=== PATIENT | male | born 1960 | race Caucasian/White ===

== ENCOUNTER 2022-08-21 17:34 | Observation (INO) | payer OTHER, SELFPAY ==
[2022-08-21 17:36] VITALS: BP 151/101; PULSE 105; RESP 16; TEMP 35.9; O2SAT 99; BMI 29.0
--- NOTE | 2022-08-21 18:26 | CT_ITS ---
EXAM: CT ABDOMEN AND PELVIS WITH INTRAVENOUS CONTRAST CLINICAL INDICATION: LLQ / flank pain TECHNIQUE: Helically acquired images were obtained of the abdomen and pelvis with intravenous contrast. This CT exam was performed using one or more of the following dose reduction techniques: automated exposure control, adjustment of the mA and/or kV according to patient size, and/or use of iterative reconstruction technique. This report was created using [employer] report generation technology. CONTRAST: IV 100mL Isovue-370 COMPARISON: None. FINDINGS: LOWER THORAX: Unremarkable. Lung bases are clear. No cardiomegaly. No significant pericardial effusion. ABDOMEN: LIVER: Unremarkable. Homogeneous. No focal mass. GALLBLADDER AND BILE DUCTS: Unremarkable. No calcified gallstones. No gallbladder distention or wall edema. No intra- or extrahepatic biliary ductal dilation. PANCREAS: Unremarkable. No focal cystic or solid mass. SPLEEN: Unremarkable. Normal size without focal cystic or solid mass. ADRENALS: Unremarkable. No nodules. KIDNEYS AND URETERS: Unremarkable. Normal renal size and position. No hydronephrosis. STOMACH AND BOWEL: There is a diverticula with focal inflammation seen surrounding the distal descending colon compatible with diverticulitis. There is no abscess. There is a small bubble of gas present which may represent a diverticulum or microperforation. No stomach or bowel distention. PELVIS: APPENDIX: No evidence of acute appendicitis. BLADDER: Unremarkable. REPRODUCTIVE: There are seeds within the prostate gland. ABDOMEN and PELVIS: INTRAPERITONEAL SPACE: Unremarkable. No ascites or other fluid collection. No free air. BONES/JOINTS: Unremarkable. No suspicious lytic or blastic abnormality. SOFT TISSUES: Unremarkable. No discrete abdominal or pelvic wall hernia. VASCULATURE: Unremarkable. Abdominal aorta is non-dilated. LYMPH NODES: Unremarkable. No enlarged lymph nodes. CT/Abdomen/Pelvis W IV Cont ONLY IMPRESSION: Inflammation surrounding the distal descending colon which may represent focal diverticulitis. A small bubble of gas outside of the lumen which may represent a diverticulum or microperforation. There is no abscess. Electronically Signed: Kedar Morgan MD at 19:35 EST ,
--- NOTE | 2022-08-21 18:27 | ED.VIS.GI ---
HPI HPI - GI History of Present Illness Chief Complaint: Abd Pain Informant: patient Abdominal Pain/Flank Pain Onset: Days (2) Context: Gradual Onset Timing: Continuous Quality: Aching Location: LLQ Current Severity: Moderate Maximum Severity: Moderate Worsened by: Nothing Relieved by: Nothing Nausea/Vomiting/Emesis GI Symptom: Negative for Nausea or Vomiting Diarrhea/Melena/Hematochezia GI Symptom: Negative for Diarrhea, Melena or Hematochezia Associated Symptoms Associated Symptoms: Negative for Dysuria, Frequency, Hematuria or Urgency Narrative Narrative: New onset of pain in her left lower quadrant laterally that has become gradually worse. Initially said he thought he strained a muscle or something but it is getting worse and not better so he went to urgent care and was referred here. He has a history of diverticulitis, he had part of his colon removed 10 or 11 years ago with a colostomy and ended up having it reversed and has not had issues since. He denies any fevers, nausea, vomiting, diarrhea, bright red blood per rectum, melena, urinary symptoms, back pain. No history of kidney stones. [facility] Medical History (Updated 08/21/22 @ 20:[address] Earl Villarreal MD) Diverticulitis of colon (without mention of hemorrhage) History of DVT of lower extremity History of pleural effusion History of venous thrombosis and embolism Home Medications cyclobenzaprine 10 mg tablet 10 mg PO PRN PRN Pain 08/03/13 [History Last Taken Unknown] lidocaine 5 % topical patch 1 patch topical PRN 01/12/14 [History Last Taken Unknown] meloxicam 7.5 mg tablet 7.5 mg PO DAILY 01/12/14 [History Last Taken Unknown] oxycodone-acetaminophen 5 mg-325 mg tablet 1 - 2 tab PO Q4H PRN PRN Pain ##30 01/17/14 [Rx Last Taken Unknown] Allergy/AdvReac Type Severity Reaction Status Date / Time No Known Allergies Allergy Verified 08/21/22 17:36 Surgical History Colostomy status Social History Smoking Status: Former smoker ROS ROS ED Constitutional Constitutional ED: Denies chills or fever(s) Eyes Eyes: Denies change in vision or diplopia ENT ENT ED: Denies rhinorrhea or sore throat Cardiovascular Cardiovascular: Denies chest pain or palpitations Respiratory/Chest Respiratory/Chest: Denies cough or dyspnea Gastrointestinal Gastrointestinal: Reports abdominal pain; Denies diarrhea, nausea or vomiting Genitourinary Genitourinary ED: Denies dysuria or hematuria Musculoskeletal Musculoskeletal: Denies back pain or neck pain Integumentary Denies abscess or rash Neurologic Neurologic: Denies headache(s), paresthesias or weakness Psychiatric Psychiatric: Denies anxiety or suicidal thoughts EXAM Physical Exam Const Vital Signs: 08/21/22 17:36 Temperature 96.6 F L Temperature Source Temporal Pulse Rate 105 H Respiratory Rate 16 Blood Pressure 151/101 H Blood Pressure Mean 117 Pulse Ox 99 Oxygen Delivery Method Room Air Positive well nourished and well developed General Appearance ED: well developed and NAD HEENT Reports moist mucous membranes normocephalic and atraumatic Eyes PERRL and EOMs intact bilaterally Neck full ROM and supple Resp normal respiratory effort and clear to auscultation bilaterally Cardio regular rate, regular rhythm and no murmurs GI non-distended GI Narrative: Tender left lower quadrant but more laterally. No guarding or rebound tenderness. No other areas of tenderness. No pulsatile mass. Auscultation: normoactive bowel sounds Palpation: soft Back/Spine no CVA tenderness General Back: other FROM Extremity normal to inspection General Extremety ED: Negative for edema, pulses abnormal or tenderness General Extremity: Negative for edema or pulses abnormal Neuro oriented x3, CN's II-XII intact bilaterally and no sensory deficits noted Sensorium / Orientation: awake and alert Motor Exam: strength 5/5 throughout Skin no rashes or lesions noted and no wounds MDM MDM MDM Narrative Medical decision making narrative: Work-up consistent with diverticulitis, and there appears to be some evidence of a microperforation without an abscess. Started patient on IV Zosyn after giving him some pain medication, and he remained clinically and hemodynamically stable. Discussed with surgery Dr. Stephens. He agrees with admitting the patient, and will see him in the emergency department, meanwhile Zosyn is started. Lab Data Attestation: I reviewed the patient's lab results. Labs: Laboratory Results - last 24 hr 08/21/22 08/21/22 08/21/22 18:15 18:15 Unknown WBC 15.3 H RBC 4.75 Hgb 13.7 Hct 42.1 MCV 88.6 MCH 28.8 MCHC 32.5 RDW Std Deviation 40.6 RDW Coeff of Yaneth 12.4 Plt Count 307 MPV 9.6 Immature Gran % (Auto) 0.300 Neut % (Auto) 69.5 Lymph % (Auto) 18.2 L [place] % (Auto) 10.8 H Eos % (Auto) 0.5 Baso % (Auto) 0.7 Absolute Neuts (auto) 10.6 H Absolute Lymphs (auto) 2.79 Nucleated RBC % 0 Differential Comment SCANNED Diff Path Review May foll Sodium 135 L Potassium 4.0 Chloride 104 Carbon Dioxide 26.0 Anion Gap 5 BUN 16 Creatinine 0.85 Estim Creat Clear Calc 87.80 Est GFR (MDRD) Af Amer 117 Est GFR (MDRD) Non-Af 96 BUN/Creatinine Ratio 18.8 Glucose 106 Calcium 8.7 Urine Color Yellow Urine Clarity Sl. Cloudy Urine pH 6.0 Ur Specific [place] 1.015 Urine Protein 30 H Urine Glucose (UA) Normal Urine Ketones 50 H Urine Occult Blood Negative Urine Nitrite Negative Urine Bilirubin Negative Urine Urobilinogen Normal Ur Leukocyte Esterase 25 H Urine RBC 0 SEEN Urine WBC 0-5 SEEN Ur Squamous Epith Cells 0-5 SEEN Amorphous Sediment 1+ URATE Urine Bacteria 0 SEEN Urine Mucus 0 SEEN Radiography Diagnostic Testing: Clinical Impression(s) from Imaging Studies Abdomen/Pelvis CT 08/21/22 18:26 IMPRESSION: Inflammation surrounding the distal descending colon which may represent focal diverticulitis. A small bubble of gas outside of the lumen which may represent a diverticulum or microperforation. There is no abscess. Electronically Signed: Kedar Morgan MD at 19:35 EST , Discharge Plan Dx/Rx/DC Orders Clinical Impression: Diverticulitis of intestine with perforation without abscess Disposition Disposition: Acute Care Hospital [facility]
[2022-08-21] MEDS: Ketorolac 15 MG/ML Vial IV (18:31)
[2022-08-21] MEDS: 0.9% Normal Saline 1,000 ML 1000 ML IV (18:31)
[2022-08-21 18:44] LABS: Absolute Lymphocyte Count 2.79 X10^3/uL (0.83-4.51); Absolute Neutrophil Count 10.6 X10^3/uL (2.0-7.7); Basophil% 0.7 % (0-1); Eosinophil# 0.08 X10^3/uL; Eosinophils% 0.5 % (0-5); Hematocrit 42.1 % (40-54); Hemoglobin 13.7 g/dL (13.0-16.5); Lymphocyte # 2.79 X10^3/ul (0.83-4.51); Lymphocyte % 18.2 % (19-41); Mean Corp Hgb Conc 32.5 g/dL (32-36); Mean Corpuscular Hgb 28.8 pg (27.0-32.0); Mean Corpuscular Volume 88.6 fL (80-94); Mean Platelet Vol. 9.6 fl (6.2-12.0); Monocyte# 1.65 X10^3/uL; Monocyte% 10.8 % (0-10); NRBC Flagged by Analyzer 0 % (0-5); Neutrophil # 10.63 X10^3/uL (2.7-7.7); Neutrophil % 69.5 % (47-70); POSITIVE DIFFERENTIAL YES; Platelet Count 307 K/mm3 (150-450); RBC Distribution Width CV 12.4 % (11.6-14.6); RBC Distribution Width SD 40.6 fl (35.1-43.9); Red Blood Count 4.75 M/mm3 (4.6-6.2); White Blood Count 15.3 K/mm3 (4.4-11.0)
[2022-08-21 18:46] LABS: Differential Indicated SCAN CRITERIA MET
[2022-08-21 19:04] LABS: Anion Gap 5 (5-15); BUN 16 mg/dL (7-18); BUN/Creat Ratio 18.8 RATIO (10-20); Calcium,Total 8.7 mg/dL (8.5-10.1); Chloride 104 mmol/L (98-107); Creatinine, Serum 0.85 mg/dL (0.70-1.30); EST Glomerular Filtration Rate 96 mL/min (>60); Est Glom Filt Rate - Afr Amer 117 mL/min (>60); Glucose 106 mg/dL (74-106); Sodium Level 135 mmol/L (136-145)
[2022-08-21 19:15] LABS: Differential Comment SCANNED
[2022-08-21 19:41] LABS: Bacteria 0 SEEN /hpf (None Seen); Mucous, Urine 0 SEEN /hpf (<or=2+); Red Blood Cells-Urine 0 SEEN /hpf (0-5)
[2022-08-21 20:33] LABS: Color, Urine Yellow (Yellow); Glucose, Dipstick Normal (Normal); Ketone-Dipstick 50 mg/dl (Negative); Leukocyte Esterase-Dipstick 25 /ul (Negative); Nitrite-Dipstick Negative (Negative); Occult Blood-Urine Negative /ul (Negative); Protein-Dipstick 30 mg/dl (Negative); Specific Gravity, Urine 1.015 (1.002-1.030); Urine Bilirubin Dipstick Negative (Negative); Urine Clarity Sl. Cloudy (Clear); Urine Urobilinogen Normal (Normal)
[2022-08-21 20:41] LABS: Squamous Epithelial Cells - UA 0-5 SEEN /hpf (0-5); White Blood Cells 0-5 SEEN /hpf (0-5)
[2022-08-21 20:42] LABS: Amorphous Sediment 1+ URATE
[2022-08-21 20:51] VITALS: BP 143/90; PULSE 81; RESP 18; TEMP 36.6; O2SAT 95
--- NOTE | 2022-08-21 21:25 | PCM.HP.STD ---
HPI - General General Date of Admission: 08/21/22 Date of Service: 08/21/22 Chief Complaint: Progressive left lower quadrant pain HPI Narrative BREANNE NUGENT, is a 62 M who presents to 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 Patient states he initially thought he had strained a muscle, but when the discomfort persisted he began to google his symptoms. On finding pain in the left lower quadrant as possibly representing diverticulitis he decided to present for further evaluation to an urgent care clinic. From the urgent care clinic he was referred here to the emergency room upon hearing his history. ED work-up is notable for laboratories demonstrating leukocytosis of 15,000 with left shift and CT imaging showing single extraluminal locule of air concerning for microperforation. Patient has a history of complicated diverticulitis for which he was first evaluated in [place] but ultimately referred to the [facility] for management. He states that he had 2 percutaneous drains placed when he initially arrived to the [facility], but 1 day the drainage from one of the drains changed in character and shortly thereafter he found himself undergoing an emergent partial colectomy (Kidd's procedure). He states this was approximately 11 years ago in February. By Calvin the same year he had this colostomy reversed?also at the [facility]. Then about [address] Montaño performed a parastomal hernia repair and Mr. Nugent states he has done well since that time. He believes he has had a colonoscopy since the surgeries, but is unable to recall an exact date. He notes that a perioperative complication occurred with his colon surgeries in the form of a lower extremity DVT. He underwent treatment with Lovenox, but was ultimately taken off this thinner. [facility] Medical History (Updated 08/21/22 @ 20:[address] Earl Villarreal MD) Diverticulitis of colon (without mention of hemorrhage) History of DVT of lower extremity History of pleural effusion History of venous thrombosis and embolism Home Medications cyclobenzaprine 10 mg tablet 10 mg PO PRN PRN Pain 08/03/13 [History Last Taken Unknown] lidocaine 5 % topical patch 1 patch topical PRN 01/12/14 [History Last Taken Unknown] meloxicam 7.5 mg tablet 7.5 mg PO DAILY 05/15/14 [History Last Taken Unknown] oxycodone-acetaminophen 5 mg-325 mg tablet 1 - 2 tab PO Q4H PRN PRN Pain ##30 01/17/14 [Rx Last Taken Unknown] Allergy/AdvReac Type Severity Reaction Status Date / Time No Known Allergies Allergy Verified 08/21/22 17:36 Surgical History Colostomy status Social History Smoking Status: Former smoker ROS Constitutional Constitutional: Denies fever(s) Gastrointestinal Gastrointestinal: Reports abdominal pain; Denies diarrhea, nausea or vomiting Genitourinary Genitourinary: Denies dysuria Musculoskeletal Musculoskeletal: Reports back pain Vital Signs Vital Signs Vital Signs: 08/21/22 17:36 08/21/22 20:51 Temperature 96.6 F L 98 F Temperature Source Temporal Oral Pulse Rate 105 H 81 Respiratory Rate 16 18 Blood Pressure 151/101 H 143/90 H Blood Pressure Mean 117 107 Pulse Ox 99 95 Oxygen Delivery Method Room Air Room Air Weight Weight: 196 lb 3.382 oz Body Mass Index (BMI) 29.0 Physical Exam Const alert, oriented x3 and no apparent distress General Appearance: cooperative Resp normal respiratory effort GI GI Narrative: Well-healed midline laparotomy scar, well-healed left lower quadrant transverse incision. No signs of hernia. Abdomen is nondistended. Abdomen is soft and minimally tender to palpation in the left lower quadrant laterally Results Lab / Micro Data Result Diagrams: 08/21/22 18:15 08/21/22 18:15 Labs: Laboratory Results - last 24 hr 08/21/22 18:15: WBC 15.3 H, RBC 4.75, Hgb 13.7, Hct 42.1, MCV 88.6, MCH 28.8, MCHC 32.5, RDW Std Deviation 40.6, RDW Coeff of Yaneth 12.4, Plt Count 307, MPV 9.6, Immature Gran % (Auto) 0.300, Neut % (Auto) 69.5, Lymph % (Auto) 18.2 L, [place] % (Auto) 10.8 H, Eos % (Auto) 0.5, Baso % (Auto) 0.7, Absolute Neuts (auto) 10.6 H, Absolute Lymphs (auto) 2.79, Nucleated RBC % 0, Differential Comment SCANNED, Diff Path Review December08/21/22 18:15: Sodium 135 L, Potassium 4.0, Chloride 104, Carbon Dioxide 26.0, Anion Gap 5, BUN 16, Creatinine 0.85, Estim Creat Clear Calc 87.80, Est GFR (MDRD) Af Amer 117, Est GFR (MDRD) Non-Af 96, BUN/Creatinine Ratio 18.8, Glucose 106, Calcium 8.7 08/21/22 : Urine Color Yellow, Urine Clarity Sl. Cloudy, Urine pH 6.0, Ur Specific [place] 1.015, Urine Protein 30 H, Urine Glucose (UA) Normal, Urine Ketones 50 H, Urine Occult Blood Negative, Urine Nitrite Negative, Urine Bilirubin Negative, Urine Urobilinogen Normal, Ur Leukocyte Esterase 25 H, Urine RBC 0 SEEN, Urine WBC 0-5 SEEN, Ur Squamous Epith Cells 0-5 SEEN, Amorphous Sediment 1+ URATE, Urine Bacteria 0 SEEN, Urine Mucus 0 SEEN Radiology Impression Abdomen/Pelvis CT 08/21/22 18:26 IMPRESSION: Inflammation surrounding the distal descending colon which may represent focal diverticulitis. A small bubble of gas outside of the lumen which may represent a diverticulum or microperforation. There is no abscess. Electronically Signed: Kedar Morgan MD at 19:35 EST , Assessment & Plan Assessment/Plan (1) Diverticulitis of intestine with perforation without abscess: PLAN: Is a 62-year-old male who presents with signs and symptoms of perforated diverticulitis that could be classified as a Hinchey 1. He has a remote history of complicated diverticulitis treated with a Kidd's procedure and reversal of a Kidd's procedure approximately 11 years ago through the [facility]. He has done well since that time and believes this is his first episode of diverticulitis. ED work-up notable for leukocytosis and CT evidence showing single locule of air adjacent to the descending colon. On exam patient is focally tender at the level of this extraluminal air, but otherwise his exam is unremarkable. Given this reassuring exam, I recommended a initial conservative treatment course with n.p.o. and IV antibiotic therapy. Patient expresses understanding of this treatment plan and the willingness to proceed as described. Neuro: As needed Dilaudid Pulm/CV: No current issues FEN/GI: Daily electrolytes, n.p.o., trend abdominal exam : No current issues Heme/ID: Trend daily CBC, IV antibiotic therapy with continuous Zosyn Endo: No current issues Proph: Patient to be encouraged to mobilize as tolerated (history of provoked DVT). SCDs Dispo: Admit to inpatient Charges/Coding Visit Charges Inpatient E&M: 62438 Init Hosp L2
[2022-08-21 23:00] VITALS: BP 135/87; PULSE 77; RESP 18; TEMP 36.6; O2SAT 98
[2022-08-21 23:08] VITALS: BMI 29.0
[2022-08-21 23:29] VITALS: BP 135/87; PULSE 77; RESP 18; TEMP 36.6; O2SAT 98
[2022-08-21] MEDS: 0.9% Normal Saline 1,000 ML 125 ML IV (23:44)
[2022-08-22 04:24] VITALS: BP 139/76; PULSE 84; RESP 18; TEMP 36.6; O2SAT 95
[2022-08-22 04:28] VITALS: BP 139/76; PULSE 84; RESP 18; TEMP 36.6; O2SAT 95
[2022-08-22 05:26] LABS: Absolute Lymphocyte Count 1.89 X10^3/uL (0.83-4.51); Absolute Neutrophil Count 6.6 X10^3/uL (2.0-7.7); Eosinophil# 0.16 X10^3/uL; Eosinophils% 1.6 % (0-5); Hematocrit 39.4 % (40-54); Hemoglobin 13.4 g/dL (13.0-16.5); Lymphocyte # 1.89 X10^3/ul (0.83-4.51); Lymphocyte % 19.1 % (19-41); Mean Corpuscular Hgb 29.8 pg (27.0-32.0); Mean Corpuscular Volume 87.8 fL (80-94); Mean Platelet Vol. 9.6 fl (6.2-12.0); Monocyte# 1.08 X10^3/uL; Monocyte% 10.9 % (0-10); NRBC Flagged by Analyzer 0 % (0-5); Neutrophil # 6.62 X10^3/uL (2.7-7.7); Neutrophil % 67.1 % (47-70); Platelet Count 281 K/mm3 (150-450); RBC Distribution Width CV 12.4 % (11.6-14.6); RBC Distribution Width SD 39.9 fl (35.1-43.9); Red Blood Count 4.49 M/mm3 (4.6-6.2); White Blood Count 9.9 K/mm3 (4.4-11.0)
[2022-08-22 05:49] LABS: Anion Gap 5 (5-15); BUN 15 mg/dL (7-18); BUN/Creat Ratio 21.2 RATIO (10-20); Calcium,Total 8.2 mg/dL (8.5-10.1); Chloride 110 mmol/L (98-107); Creatinine, Serum 0.71 mg/dL (0.70-1.30); EST Glomerular Filtration Rate 119 mL/min (>60); Est Glom Filt Rate - Afr Amer 144 mL/min (>60); Estimated Creatinine Clearance 101.69 ml/min; Glucose 95 mg/dL (74-106); Magnesium 2.1 mg/dL (1.6-2.6); Phosphorus 2.5 mg/dL (2.5-4.9); Potassium 4.1 mmol/L (3.5-5.1); Sodium Level 138 mmol/L (136-145)
[2022-08-22] MEDS: 0.9% Normal Saline 1,000 ML 125 ML IV (07:49)
--- NOTE | 2022-08-22 09:02 | PCM.PN.SRG ---
Subjective Subjective Patient seen and examined during AM rounds. He is actively engaged in a phone conversation he refuses to disengage from. He hastily states that he must get out of here and reports that he is lost power to his home. He denies any abdominal pain. Objective Data Objective Data Vital Signs: Vital Signs Temp Pulse Resp BP Pulse Ox O2 Del Method 97.8 F 84 18 139/76 H 95 Room Air 08/22/22 04:28 08/22/22 04:28 08/22/22 04:28 08/22/22 04:28 08/22/22 04:28 08/22/22 04:28 Oxygen Delivery Method Room Air Weight: 196 lb 3.382 oz Body Mass Index (BMI) 29.0 Intake & Output: Intake and Output for Last 24 Hours 08/20/22 08/21/22 08/22/22 23:59 23:59 23:59 Intake Total 1050 / 1050 1010 / 1010 Output Total 500 / 500 Balance 1050 / 1050 510 / 510 Lab / Micro Data Result Diagrams: 08/22/22 04:08 08/22/22 04:08 Labs: Laboratory Results - last 24 hr 08/21/22 18:15: WBC 15.3 H, RBC 4.75, Hgb 13.7, Hct 42.1, MCV 88.6, MCH 28.8, MCHC 32.5, RDW Std Deviation 40.6, RDW Coeff of Yaneth 12.4, Plt Count 307, MPV 9.6, Immature Gran % (Auto) 0.300, Neut % (Auto) 69.5, Lymph % (Auto) 18.2 L, [place] % (Auto) 10.8 H, Eos % (Auto) 0.5, Baso % (Auto) 0.7, Absolute Neuts (auto) 10.6 H, Absolute Lymphs (auto) 2.79, Nucleated RBC % 0, Differential Comment SCANNED, Diff Path Review December08/21/22 18:15: Sodium 135 L, Potassium 4.0, Chloride 104, Carbon Dioxide 26.0, Anion Gap 5, BUN 16, Creatinine 0.85, Estim Creat Clear Calc 87.80, Est GFR (MDRD) Af Amer 117, Est GFR (MDRD) Non-Af 96, BUN/Creatinine Ratio 18.8, Glucose 106, Calcium 8.7 08/21/22 : Urine Color Yellow, Urine Clarity Sl. Cloudy, Urine pH 6.0, Ur Specific [place] 1.015, Urine Protein 30 H, Urine Glucose (UA) Normal, Urine Ketones 50 H, Urine Occult Blood Negative, Urine Nitrite Negative, Urine Bilirubin Negative, Urine Urobilinogen Normal, Ur Leukocyte Esterase 25 H, Urine RBC 0 SEEN, Urine WBC 0-5 SEEN, Ur Squamous Epith Cells 0-5 SEEN, Amorphous Sediment 1+ URATE, Urine Bacteria 0 SEEN, Urine Mucus 0 SEEN 08/22/22 04:08: WBC 9.9, RBC 4.49 L, Hgb 13.4, Hct 39.4 L, MCV 87.8, MCH 29.8, MCHC 34.0, RDW Std Deviation 39.9, RDW Coeff of Yaneth 12.4, Plt Count 281, MPV 9.6, Immature Gran % (Auto) 0.300, Neut % (Auto) 67.1, Lymph % (Auto) 19.1, [place] % (Auto) 10.9 H, Eos % (Auto) 1.6, Baso % (Auto) 1.0, Absolute Neuts (auto) 6.6, Absolute Lymphs (auto) 1.89, Nucleated RBC % 0 08/22/22 04:08: Sodium 138, Potassium 4.1, Chloride 110 H, Carbon Dioxide 23.0, Anion Gap 5, BUN 15, Creatinine 0.71, Estim Creat Clear Calc 101.69, Est GFR (MDRD) Af Amer 144, Est GFR (MDRD) Non-Af 119, BUN/Creatinine Ratio 21.2 H, Glucose 95, Calcium 8.2 L, Phosphorus 2.5, Magnesium 2.1 Radiography Diagnostic Testing: Radiology Impression Abdomen/Pelvis CT 08/21/22 18:26 IMPRESSION: Inflammation surrounding the distal descending colon which may represent focal diverticulitis. A small bubble of gas outside of the lumen which may represent a diverticulum or microperforation. There is no abscess. Electronically Signed: Kedar Morgan MD at 19:35 EST , Physical Exam Const oriented x3 Constitutional Narrative: Patient appears in distress from his news about his home, but denies any abdominal discomfort Resp normal respiratory effort GI GI Narrative: Nondistended, soft, nontender to palpation x4 quadrants (including left lower quadrant) Assessment & Plan Assessment/Plan (1) Diverticulitis of intestine with perforation without abscess: PLAN: Is a 62-year-old male who presents with signs and symptoms of perforated diverticulitis that could be classified as a Hinchey 1. He has a remote history of complicated diverticulitis treated with a Kidd's procedure and reversal of a Kidd's procedure approximately 11 years ago through the [facility]. Patient now hospital day 2 and appears to be further improved today with no complaints of abdominal pain. Diet advanced to soft, low residue diet and transition to oral antibiotics on the basis of this clinical improvement. Neuro: As needed Dilaudid Pulm/CV: No current issues FEN/GI: Daily electrolytes, advance to soft, low residue diet, trend abdominal exam : No current issues Heme/ID: Trend daily CBC, WBC normalized, antibiotic therapy transition to Augmentin Endo: No current issues Proph: Patient to be encouraged to mobilize as tolerated (history of provoked DVT). SCDs Dispo: Plan for discharge later today if patient tolerating diet Charges/Coding Visit Charges Inpatient E&M: 85204 Subs Hosp L2
[2022-08-22 10:30] VITALS: BP 147/94; PULSE 81; RESP 18; TEMP 35.8; O2SAT 97
[2022-08-22 10:44] VITALS: BP 147/94; PULSE 81; RESP 18; TEMP 35.8; O2SAT 97
[2022-08-22] MEDS: Amox/Clavulanate 875 MG Tablet PO (11:29)
--- NOTE | 2022-08-22 13:07 | DCINST_ITS ---
Discharge Instructions Diet Discharge Diet: Soft diet (Low residue/low fiber) Activity Discharge Activity: May Drive Dressing / Incision Call your doctor if you observe: Fever of 101 or Higher, Coldness, Increased Pain and Uncontrolled pain Follow Up Care Please Follow Up With: Pj Stephens MD When: 7 days postop Test Results: Test results from this visit will be discussed in further detail at your follow- up appointment, if applicable. Discharge Plan Admission Admit Date/Time: 08/21/22 21:20 Primary Reason for Your Visit: Perforated diverticulitis Attending Provider: Pj Stephens Primary Care Provider: Anthony Perez Instructions Patient Instructions: Low-Fiber Diet Discharge Orders/Prescriptions Prescriptions: New amoxicillin-pot clavulanate 875-125 mg Tablet 1 tab PO BID 7 Days Qty: 14 0RF Continued cyclobenzaprine 10 MG tablet 10 mg PO PRN PRN (Reason: Pain) Label Comments: muscle relaxant pravastatin 20 mg tablet 20 mg QHS Label Comments: TAKE 1 TABLET BY MOUTH ONCE DAILY AT BEDTIME Referrals / Follow Up: Anthony Perez MD [Primary Care Provider] - Disposition Disposition (needs filled in before D/C Order can be placed): Home, Self Care
--- NOTE | 2022-08-22 13:11 | DS.PCM_ITS ---
Providers Date of Admission: 08/21/22 Primary Care Physician: Dr. Anthony Perez MD Reason For Visit: PERFORATION DIVERTICULITIS Diagnosis Discharge Diagnosis (1) Diverticulitis of intestine with perforation without abscess: Status: Acute Code(s): K57.80 - Diverticulitis of intestine, part unspecified, with perforation and abscess without bleeding Plan: Is a 62-year-old male who presents with signs and symptoms of perforated diverticulitis that could be classified as a Hinchey 1. He has a remote history of complicated diverticulitis treated with a Kidd's procedure and reversal of a Kidd's procedure approximately 11 years ago through the [facility]. Patient now hospital day 2 and appears to be further improved today with no complaints of abdominal pain. Diet advanced to soft, low residue diet and transition to oral antibiotics on the basis of this clinical improvement. Neuro: As needed Dilaudid Pulm/CV: No current issues FEN/GI: Daily electrolytes, advance to soft, low residue diet, trend abdominal exam : No current issues Heme/ID: Trend daily CBC, WBC normalized, antibiotic therapy transition to Augmentin Endo: No current issues Proph: Patient to be encouraged to mobilize as tolerated (history of provoked DVT). SCDs Dispo: Plan for discharge later today if patient tolerating diet Medications at Discharge Home Medications cyclobenzaprine 10 mg tablet 10 mg PO PRN PRN Pain 08/03/13 pravastatin 20 mg tablet 20 mg QHS cholesterol 08/21/22 amoxicillin 875 mg-potassium clavulanate 125 mg tablet 1 tab PO BID 7 days #14 tabs 08/22/22 Hospital Course Operations None Procedures None Summary of Care Provided Minutes Spent on Discharge: 5 Hospital Course: Patient is 62-year-old male with a past history of complicated diverticulitis treated with Kidd's procedure status post reversal approximate 11 years ago. He was admitted on 08/21/2022 after he presented with signs and symptoms of recurrent complicated diverticulitis. CT imaging showed a single locule of air outside of his descending colon and he was focally tender at this point on exam. He also had a white blood cell count of 15,000. Given these findings, he is admitted for conservative management of this issue and held n.p.o. upon admission with initiation of IV antibiotics using Zosyn. By hospital day 2 his white blood cell count normalized and his abdominal pain resolved. Therefore he was advanced in his diet and transition to oral antibiotics. He tolerated both of these transitions without difficulty and was thus granted discharge the afternoon of hospital day 2 with expectations for posthospitalization follow-up as an outpatient. Physical Exam Const alert and oriented x3 GI GI Narrative: Nondistended, soft, nontender to palpation x4 quadrants Weight / BMI Weight Weight: 196 lb 3.382 oz Body Mass Index (BMI) 29.0 ABG / Lab / Microbiology Data Result Diagrams: 08/22/22 04:08 08/22/22 04:08 Laboratory: Laboratory Results - last 24 hr 08/21/22 18:15: WBC 15.3 H, RBC 4.75, Hgb 13.7, Hct 42.1, MCV 88.6, MCH 28.8, MCHC 32.5, RDW Std Deviation 40.6, RDW Coeff of Yaneth 12.4, Plt Count 307, MPV 9.6, Immature Gran % (Auto) 0.300, Neut % (Auto) 69.5, Lymph % (Auto) 18.2 L, [place] % (Auto) 10.8 H, Eos % (Auto) 0.5, Baso % (Auto) 0.7, Absolute Neuts (auto) 10.6 H, Absolute Lymphs (auto) 2.79, Nucleated RBC % 0, Differential Comment SCANNED, Diff Path Review December08/21/22 18:15: Sodium 135 L, Potassium 4.0, Chloride 104, Carbon Dioxide 26.0, Anion Gap 5, BUN 16, Creatinine 0.85, Estim Creat Clear Calc 87.80, Est GFR (MDRD) Af Amer 117, Est GFR (MDRD) Non-Af 96, BUN/Creatinine Ratio 18.8, Glucose 106, Calcium 8.7 08/21/22 : Urine Color Yellow, Urine Clarity Sl. Cloudy, Urine pH 6.0, Ur Specific [place] 1.015, Urine Protein 30 H, Urine Glucose (UA) Normal, Urine Ketones 50 H, Urine Occult Blood Negative, Urine Nitrite Negative, Urine Bilirubin Negative, Urine Urobilinogen Normal, Ur Leukocyte Esterase 25 H, Urine RBC 0 SEEN, Urine WBC 0-5 SEEN, Ur Squamous Epith Cells 0-5 SEEN, Amorphous Sediment 1+ URATE, Urine Bacteria 0 SEEN, Urine Mucus 0 SEEN 08/22/22 04:08: WBC 9.9, RBC 4.49 L, Hgb 13.4, Hct 39.4 L, MCV 87.8, MCH 29.8, MCHC 34.0, RDW Std Deviation 39.9, RDW Coeff of Yaneth 12.4, Plt Count 281, MPV 9.6, Immature Gran % (Auto) 0.300, Neut % (Auto) 67.1, Lymph % (Auto) 19.1, [place] % (Auto) 10.9 H, Eos % (Auto) 1.6, Baso % (Auto) 1.0, Absolute Neuts (auto) 6.6, Absolute Lymphs (auto) 1.89, Nucleated RBC % 0 08/22/22 04:08: Sodium 138, Potassium 4.1, Chloride 110 H, Carbon Dioxide 23.0, Anion Gap 5, BUN 15, Creatinine 0.71, Estim Creat Clear Calc 101.69, Est GFR (MDRD) Af Amer 144, Est GFR (MDRD) Non-Af 119, BUN/Creatinine Ratio 21.2 H, Glucose 95, Calcium 8.2 L, Phosphorus 2.5, Magnesium 2.1 Radiography Diagnostic Testing: Radiology Impression Abdomen/Pelvis CT 08/21/22 18:26 IMPRESSION: Inflammation surrounding the distal descending colon which may represent focal diverticulitis. A small bubble of gas outside of the lumen which may represent a diverticulum or microperforation. There is no abscess. Electronically Signed: Kedar Morgan MD at 19:35 EST Reading Location ID and State: [address] [place] [address] Tel , Service support , D/C Instructions Discharge Diet: Soft diet (Low residue/low fiber) Call your doctor if you observe: Fever of 101 or Higher, Coldness, Increased Pain and Uncontrolled pain Please Follow Up With: Pj Stephens MD When: 7 days postop Meaningful Use Info Meaningful Use Diagnoses (Choose all that apply): None applicable Discharge Plan Admission Admit Date/Time: 08/21/22 21:20 Primary Reason for Your Visit: Perforated diverticulitis Attending Provider: Pj Stephens Primary Care Provider: Anthony Perez Instructions Patient Instructions: Low-Fiber Diet Discharge Orders/Prescriptions Prescriptions: New amoxicillin-pot clavulanate 875-125 mg Tablet 1 tab PO BID 7 Days Qty: 14 0RF Continued cyclobenzaprine 10 MG tablet 10 mg PO PRN PRN (Reason: Pain) Label Comments: muscle relaxant pravastatin 20 mg tablet 20 mg QHS Label Comments: TAKE 1 TABLET BY MOUTH ONCE DAILY AT BEDTIME Referrals / Follow Up: Anthony Perez MD [Primary Care Provider] - Disposition Disposition (needs filled in before D/C Order can be placed): Home, Self Care Charges/Coding Visit Charges Inpatient E&M: 24371 Disch Hosp
--- NOTE | 2022-08-22 14:05 | CASEMGMT ---
BARRY DE LEON Assessment: Face to Face with pt for initial transition planning/care coordination assessment. RN MOISES introduced self and role at [facility], pt voices understanding and consents to assessment. Pt is A/O x4 and answers all questions appropriately at this time. Pt sitting up in bed in no distress. Care providers, pharmacy, and demographics verified/updated. Admitting Dx: perforation diverticulitis PCP:Chris Specialists:Kory, uro; Ivette, back and neck OR Preferred Pharmacy: [facility] Retail Insurance: [employer] Prescription Benefit: yes LNOK: Arianna Barrow, sig other; Ninoska Mcarthur, mother Living Arrangements: Pt lives with sig other in a single story home with no steps to enter. Pt reports he is I in ADL's and denies concerns at home. Transportation: Pt drives self and denies concerns with transportation. DME/HHC/SNF: Pt has a walk in shower, does not use AD. Pt sig other has DME available. Pt denies previous HHC or SNF stays. Pt states no concerns with going home at time of dc. Pt states no further concerns/needs. CM to follow. Advised pt to ask CM if any further question/concerns/needs arise, voices understanding. Pt Goal: Home Plan: Home
[2022-08-22 14:10] LABS: Pathologist Review Reviewed
--- NOTE | 2022-08-22 15:47 | NURSING ---
This RN taking over patients care at 15:00.
[2022-08-22 16:00] VITALS: BP 136/80; PULSE 80; RESP 18; TEMP 36.6; O2SAT 96
[2022-08-22 16:22] VITALS: BP 136/80; PULSE 80; RESP 18; TEMP 36.6; O2SAT 96
== END 2022-08-22 16:45 | disposition home or self-care (01) ==
LOC: ED 20:35 → MS3 08-22 08:21
PROVIDERS: Admitting Provider Surgery; Emergency Provider Emergency Medicine; PCP Internal Medicine; Visit Provider Surgery
DX: K57.80 Diverticulitis of intestine, part unspecified, with perforation and abscess without bleeding (principal); Z87.891 Personal history of nicotine dependence; Z86.718 Personal history of other venous thrombosis and embolism
CPT/HCPCS: 36415; 74177; 80048; 81001; 83735; 84100; 85025; 96361; 96365; 96366; 96375; 99221; 99284; J7030; J7040; Q9967; A4216; G0378

== ENCOUNTER 2024-01-22 07:36 | Emergency (ER) | payer MEDICARE, SELFPAY ==
[2024-01-22 07:38] VITALS: BP 171/110; PULSE 96; RESP 16; TEMP 36.3; O2SAT 99; BMI 29.6
[2024-01-22 07:39] VITALS: BP 165/106; PULSE 99; RESP 16; TEMP 36.3; O2SAT 97
--- NOTE | 2024-01-22 07:51 | CT_ITS ---
STUDY: CT ABDOMEN AND PELVIS WITH CONTRAST REASON FOR EXAM: Male, 63 years old. Diffuse abdominal pain RADIATION DOSAGE (If Supplied By Facility): CTDIvol = ( 18.91 ) mGy, DLP = ( 1368.80 ) mGycm TECHNIQUE: Transaxial images were obtained from the dome of the diaphragm to the symphysis pubis without oral contrast. IV 100mL Isovue-300 was administered. Sagittal and coronal images were reconstructed. Individualized dose optimization techniques were used for this CT. COMPARISON: 08/21/2022 FINDINGS: There are chronic interstitial fibrotic changes of the lung bases. The visualized portions of the heart are within normal limits. Normal liver. Normal gallbladder and extrahepatic biliary system. Normal spleen. Normal pancreas. Normal bilateral adrenal glands. Normal right kidney. Normal left kidney. Normal visualized stomach. Nondistended fluid-filled small bowel loops are noted consistent with ileus. Retained stool noted in the majority of the colon. There is abnormal thickening of the mid and distal descending colon with pericolonic inflammatory stranding. Findings are consistent with an acute diverticulitis. However, there is some evidence of caliber change within the distal descending colon and a underlying neoplastic process should be excluded with CT inflammatory changes have resolved. There is no perforation or abscess. The appendix is visualized and appears normal. Appendix seen on coronal reconstructed images 49 through 61 There is diffuse atherosclerotic calcification of the abdominal aorta, without a demonstrated aneurysm. Normal inferior vena cava. Normal retroperitoneum. Normal urinary bladder. Brachytherapy beads noted within the prostate. Normal abdominal wall. There are diffuse degenerative changes of the visualized lumbar spine, and pelvis. Surgical hardware in the lower lumbar spine free of complication CT/Abdomen/Pelvis W IV Cont ONLY IMPRESSION: Acute diverticulitis in the mid and distal descending colon with pericolonic inflammatory stranding. No perforation or abscess. There is however some caliber change within the descending colon and an underlying neoplastic process should be excluded once the acute inflammation has resolved. Small bowel ileus likely a result of the acute inflammatory changes in the colon described above No suspicious solid organ abnormality Normal appendix Electronically Signed: Levi Salazar MD at 10:01 EDT ,
--- NOTE | 2024-01-22 07:52 | EDS_ITS ---
HPI HPI - GI History of Present Illness Chief Complaint: Abd Pain Informant: patient Abdominal Pain/Flank Pain Onset: Yesterday Context: Gradual Onset Timing: Continuous Quality: Aching Location: LLQ Current Severity: Moderate Maximum Severity: Severe Worsened by: Nothing Relieved by: Nothing Nausea/Vomiting/Emesis GI Symptom: Negative for Nausea or Vomiting Diarrhea/Melena/Hematochezia GI Symptom: Negative for Diarrhea, Melena or Hematochezia Associated Symptoms Associated Symptoms: Negative for Dysuria, Frequency, Hematuria or Urgency Narrative Narrative: Onset of pain in left abdomen that has become gradually worse. He has a history of diverticulitis, he had part of his colon removed 10 or 11 years ago with a colostomy and ended up having it reversed and has not had issues since, but thinks this pain feels like diverticulitis. He denies any fevers, nausea, vomiting, diarrhea, bright red blood per rectum, melena, urinary symptoms, back pain. No history of kidney stones. [facility] Medical History (Updated 01/22/24 @ 10:[address] Earl Villarreal MD) History of pleural effusion Diverticulitis of colon (without mention of hemorrhage) History of DVT of lower extremity History of venous thrombosis and embolism Home Medications ?Medication ?Instructions ?Recorded ?Last Taken ?Type cyclobenzaprine 10 mg tablet 10 mg PO PRN PRN Pain 08/03/13 08/20/22 04:00 History pravastatin 20 mg tablet 20 mg QHS cholesterol 08/21/22 08/20/22 19:00 History amoxicillin 875 mg-potassium 875 mg PO Q12H #20 TABLETS 01/22/24 Unknown Rx clavulanate 125 mg tablet Allergy/AdvReac Type Severity Reaction Status Date / Time No Known Allergies Allergy Verified 01/22/24 07:37 Surgical History History of colostomy reversal Colostomy status Social History Smoking Status: Former smoker ROS ROS ED Constitutional Constitutional ED: Denies chills or fever(s) Eyes Eyes: Denies change in vision or diplopia ENT ENT ED: Denies rhinorrhea or sore throat Cardiovascular Cardiovascular: Denies chest pain or palpitations Respiratory/Chest Respiratory/Chest: Denies cough or dyspnea Gastrointestinal Gastrointestinal: Reports abdominal pain; Denies diarrhea, nausea or vomiting Genitourinary Genitourinary ED: Denies dysuria or hematuria Musculoskeletal Musculoskeletal: Denies back pain or neck pain Integumentary Denies abscess or rash Neurologic Neurologic: Denies headache(s), paresthesias or weakness Psychiatric Psychiatric: Denies anxiety or suicidal thoughts EXAM Physical Exam Const Vital Signs: 01/22/24 07:38 01/22/24 07:39 01/22/24 09:00 Temperature 97.3 F L 97.3 F L 98.9 F Temperature Source Temporal Temporal Temporal Pulse Rate 96 99 67 Respiratory Rate 16 16 18 Blood Pressure 171/110 H 165/106 H 146/95 H Blood Pressure Mean 130 125 112 Pulse Ox 99 97 97 Oxygen Delivery Method Room Air Room Air Room Air 01/22/24 09:37 01/22/24 10:00 Temperature 98.7 F Temperature Source Temporal Pulse Rate 78 88 Respiratory Rate 16 18 Blood Pressure 126/93 H 137/89 H Blood Pressure Mean 104 105 Pulse Ox 97 98 Oxygen Delivery Method Room Air Room Air Positive well nourished and well developed General Appearance ED: well developed and NAD HEENT Reports moist mucous membranes normocephalic and atraumatic Eyes PERRL and EOMs intact bilaterally Neck full ROM and supple Resp normal respiratory effort and clear to auscultation bilaterally Cardio regular rate, regular rhythm and no murmurs GI non-distended GI Narrative: Tender left lower quadrant but more laterally. No guarding or rebound tenderness. No other areas of tenderness. No pulsatile mass. Auscultation: normoactive bowel sounds Palpation: soft Back/Spine no CVA tenderness General Back: other FROM Extremity normal to inspection General Extremety ED: Negative for edema, pulses abnormal or tenderness General Extremity: Negative for edema or pulses abnormal Neuro oriented x3, CN's II-XII intact bilaterally, no sensory deficits noted and gait normal Sensorium / Orientation: awake and alert Motor Exam: strength 5/5 throughout Psych mental status grossly normal and thought process normal Skin no rashes or lesions noted and no wounds MDM MDM MDM Narrative Medical decision making narrative: Concern for diverticulitis, partial small bowel obstruction also in the differential, patient is not an extremis or having severe pain right now, his tenderness is similar to the context of his tenderness, so I am not thinking this is likely any type of acute mesenteric or bowel ischemia. While obtaining labs and a CT he was given IV fluids and Toradol for the pain. That did help his pain. I reviewed the labs, he does have a strong leukocytosis, and his urine is unremarkable, arguing against kidney stone. I reviewed the CT images as well as the report which I agree with, it is consistent with the absence of ureterolithiasis and presence of left-sided colonic diverticulitis without perforation or abscess, this is in the location where the patient is having pain. He is not septic, he is well-appearing, his vital signs are great, and I believe reasonable to treat as an outpatient. Discussed follow-up, outpatient treatment, offered prescription analgesics which she declines and states he should be okay without it. His blood pressure normalized on recheck without treating it, 137/89. Lab Data Attestation: I reviewed the patient's lab results. Labs: Laboratory Results - last 24 hr 01/22/24 07:55 WBC 19.3 H RBC 5.39 Hgb 15.6 Hct 46.5 MCV 86.3 MCH 28.9 MCHC 33.5 RDW Std Deviation 41.2 RDW Coeff of Yaneth 13.2 Plt Count 284 MPV 9.9 Immature Gran % (Auto) 0.400 Neut % (Auto) 79.6 H Lymph % (Auto) 11.2 L [place] % (Auto) 8.1 Eos % (Auto) 0.2 Baso % (Auto) 0.5 Absolute Neuts (auto) 15.4 H Absolute Lymphs (auto) 2.16 Nucleated RBC % 0 Differential Comment SCANNED Diff Path Review May foll Sodium 135 L Potassium 4.1 Chloride 106 Carbon Dioxide 23.0 Anion Gap 6 BUN 13 Creatinine 0.87 Estim Creat Clear Calc 97.32 Est GFR (MDRD) Af Amer 112 Est GFR (MDRD) Non-Af 93 BUN/Creatinine Ratio 14.9 Glucose 133 H Calcium 9.2 Urine Color Yellow Urine Clarity Clear Urine pH 7.0 Ur Specific [place] 1.010 Urine Protein 15 H Urine Glucose (UA) Normal Urine Ketones Negative Urine Occult Blood Negative Urine Nitrite Negative Urine Bilirubin Negative Urine Urobilinogen Normal Ur Leukocyte Esterase Negative Urine RBC 0 SEEN Urine WBC 0 SEEN Ur Squamous Epith Cells 0 SEEN Urine Bacteria 0 SEEN Urine Mucus 0 SEEN Radiography Diagnostic Testing: Clinical Impression(s) from Imaging Studies Abdomen/Pelvis CT 01/22/24 07:51 IMPRESSION: Acute diverticulitis in the mid and distal descending colon with pericolonic inflammatory stranding. No perforation or abscess. There is however some caliber change within the descending colon and an underlying neoplastic process should be excluded once the acute inflammation has resolved. Small bowel ileus likely a result of the acute inflammatory changes in the colon described above No suspicious solid organ abnormality Normal appendix Electronically Signed: Levi Salazar MD at 10:01 EDT Reading Location ID and State: [facility] / DC , Service support , Discharge Plan Triage Chief Complaint: Abd Pain ED Provider: Earl Villarreal Dx/Rx/DC Orders Clinical Impression: Diverticulitis of intestine with perforation without abscess Instructions: Diverticulitis Dc Prescriptions: New amoxicillin-pot clavulanate 875-125 mg tablet 875 mg PO Q12H Qty: 20 0RF No Action cyclobenzaprine 10 MG tablet 10 mg PO PRN PRN (Reason: Pain) Patient Comments: muscle relaxant pravastatin 20 mg tablet 20 mg QHS Patient Comments: TAKE 1 TABLET BY MOUTH ONCE DAILY AT BEDTIME Primary Care Provider: Anthony Perez Referrals: Anthony Perez MD [Primary Care Provider] - Print Language: Albanian
[2024-01-22] MEDS: 0.9% Normal Saline (500mL Bag) 500 ML 999 ML IV (08:02)
[2024-01-22] MEDS: Ketorolac 15 MG/ML Vial IV (08:02)
[2024-01-22 08:11] LABS: Bacteria 0 SEEN /hpf (None Seen); Mucous, Urine 0 SEEN /hpf (<or=2+); Red Blood Cells-Urine 0 SEEN /hpf (0-5); Squamous Epithelial Cells - UA 0 SEEN /hpf (0-5); White Blood Cells 0 SEEN /hpf (0-5)
[2024-01-22 08:13] LABS: Absolute Lymphocyte Count 2.16 X10^3/uL (0.83-4.51); Absolute Neutrophil Count 15.4 X10^3/uL (2.0-7.7); Basophil# 0.09 X10^3/uL; Basophil% 0.5 % (0-1); Eosinophil# 0.03 X10^3/uL; Eosinophils% 0.2 % (0-5); Hematocrit 46.5 % (40-54); Hemoglobin 15.6 g/dL (13.0-16.5); Lymphocyte # 2.16 X10^3/ul (0.83-4.51); Lymphocyte % 11.2 % (19-41); Mean Corp Hgb Conc 33.5 g/dL (32-36); Mean Corpuscular Hgb 28.9 pg (27.0-32.0); Mean Corpuscular Volume 86.3 fL (80-94); Mean Platelet Vol. 9.9 fl (6.2-12.0); Monocyte# 1.57 X10^3/uL; Monocyte% 8.1 % (0-10); NRBC Flagged by Analyzer 0 % (0-5); Neutrophil # 15.42 X10^3/uL (2.7-7.7); Neutrophil % 79.6 % (47-70); POSITIVE DIFFERENTIAL YES; Platelet Count 284 K/mm3 (150-450); RBC Distribution Width CV 13.2 % (11.6-14.6); RBC Distribution Width SD 41.2 fl (35.1-43.9); Red Blood Count 5.39 M/mm3 (4.6-6.2); White Blood Count 19.3 K/mm3 (4.4-11.0)
[2024-01-22 08:15] LABS: Differential Indicated SCAN CRITERIA MET
[2024-01-22 08:16] LABS: Color, Urine Yellow (Yellow); Glucose, Dipstick Normal (Normal); Ketone-Dipstick Negative (Negative); Leukocyte Esterase-Dipstick Negative /ul (Negative); Nitrite-Dipstick Negative (Negative); Occult Blood-Urine Negative /ul (Negative); Protein-Dipstick 15 mg/dl (Negative); Urine Bilirubin Dipstick Negative (Negative); Urine Clarity Clear (Clear); Urine Urobilinogen Normal (Normal)
[2024-01-22 08:33] LABS: Differential Comment SCANNED
[2024-01-22 08:46] LABS: Anion Gap 6 (5-15); BUN 13 mg/dL (7-18); BUN/Creat Ratio 14.9 RATIO (10-20); Calcium,Total 9.2 mg/dL (8.5-10.1); Chloride 106 mmol/L (98-107); Creatinine, Serum 0.87 mg/dL (0.70-1.30); EST Glomerular Filtration Rate 93 mL/min (>60); Est Glom Filt Rate - Afr Amer 112 mL/min (>60); Estimated Creatinine Clearance 97.32 ml/min; Glucose 133 mg/dL (74-106); Potassium 4.1 mmol/L (3.5-5.1); Sodium Level 135 mmol/L (136-145)
[2024-01-22 09:00] VITALS: BP 146/95; PULSE 67; RESP 18; TEMP 37.2; O2SAT 97
[2024-01-22 09:37] VITALS: BP 126/93; PULSE 78; RESP 16; O2SAT 97
[2024-01-22 10:00] VITALS: BP 137/89; PULSE 88; RESP 18; TEMP 37.1; O2SAT 98
[2024-01-22] MEDS: Amox/Clavulanate 875 MG Tablet PO (10:25)
[2024-01-22 10:33] VITALS: BP 127/63; PULSE 64; RESP 15; TEMP 36.3; O2SAT 98
[2024-01-26 14:38] LABS: Pathologist Review Reviewed
== END 2024-01-22 10:34 | disposition home or self-care (01) ==
PROVIDERS: Emergency Provider Emergency Medicine; PCP Internal Medicine; Visit Provider Emergency Medicine
DX: K57.32 Diverticulitis of large intestine without perforation or abscess without bleeding (principal); Z93.3 Colostomy status; Z87.891 Personal history of nicotine dependence
CPT/HCPCS: 74177; 80048; 81001; 85025; 96360; 96361; 96374; 99283; J7040; Q9967